=== PATIENT | male | born 1940 | race Caucasian/White ===

== ENCOUNTER → 2022-01-30 | Outpatient (CLI) | payer MEDICARE, BC | LOC: KOH-I 10:10 | DX: M54.50 Low back pain, unspecified (principal); M47.816 Spondylosis without myelopathy or radiculopathy, lumbar region; I71.4 Abdominal aortic aneurysm, without rupture | CPT/HCPCS: 72100 ==

== ENCOUNTER → 2022-02-20 | Outpatient (CLI) | payer MEDICARE | LOC: EXRD 09:12 | DX: I71.4 Abdominal aortic aneurysm, without rupture (principal) | CPT/HCPCS: 93979 ==

== ENCOUNTER → 2022-06-16 | Outpatient (CLI) | payer MEDICARE ==
[~2022-06-16] MED LIST: ASPIRIN EC81 MG PO; B-121000 MCG PO; BUMETANIDE0.5 MG PO; DOCUSATE SODIU100 MG PO; IRON325 M1 PO; LATANOPROST2.5 ML OU; LIDOCAINE1 EAC1 TP; MACROBID 100 M100 MG PO; MIDODRINE HCL10 MG PO; MIRALAX17 GM PO; NAMENDA 5 MG TAB5 MG PO; PRAVASTATIN SOD40 MG PO; PROTONIX 40 MG40 M1 PO; PROTONIX DRIP; SENNA8.6 MG PO; SIMBRINZA 1%-0.28 M1 OU; SODIUM BICARBO325 MG PO; SODIUM CHLORIDE3 ML INH; SPIRONOLACTONE25 MG PO; SYNTHROID75 MCG PO
== END ==
LOC: LAB 14:51
DX: N39.0 Urinary tract infection, site not specified (principal)
CPT/HCPCS: 81001; 87077; 87086; 87186

== ENCOUNTER 2022-06-19 15:25 | Inpatient (IN) | payer MEDICARE ==
[~2022-06-19] VITALS: Ht 177.8 cm; Wt 93.0 kg
[2022-06-19 16:27] LABS: RED BLOOD COUNT 1.81 M/UL (4.20-5.50); WHITE BLOOD COUNT 11.7 K/UL (4.5-11.0)
[2022-06-20 01:28] LABS: HEMOGLOBIN 7.6 gm/dl (14.0-17.5)
[2022-06-20 09:34] LABS: HEMOGLOBIN 8.2 gm/dl (14.0-17.5); RED BLOOD COUNT 2.61 M/UL (4.20-5.50); WHITE BLOOD COUNT 10.4 K/UL (4.5-11.0)
[2022-06-20 10:10] LABS: BUN/CREATININE RATIO 31 (0-10)
[2022-06-20] MEDS ORDERED: LIDOCAINE1 EAC1 TP (13:17)
[2022-06-20] MEDS ORDERED: ASPIRIN EC81 MG PO (13:17)
[2022-06-20] MEDS ORDERED: BUMETANIDE0.5 MG PO (13:18)
[2022-06-20] MEDS ORDERED: SIMBRINZA 1%-0.28 M1 OU (13:18)
[2022-06-20] MEDS ORDERED: DOCUSATE SODIU100 MG PO (13:19)
[2022-06-20] MEDS ORDERED: IRON325 M1 PO (13:19)
[2022-06-20] MEDS ORDERED: B-121000 MCG PO (13:19)
[2022-06-20] MEDS ORDERED: LATANOPROST2.5 ML OU (13:19)
[2022-06-20] MEDS ORDERED: PROTONIX 40 MG40 M1 PO (13:20)
[2022-06-20] MEDS ORDERED: NAMENDA 5 MG TAB5 MG PO (13:20)
[2022-06-20] MEDS ORDERED: MIDODRINE HCL10 MG PO (13:20)
[2022-06-20] MEDS ORDERED: SYNTHROID75 MCG PO (13:20)
[2022-06-20] MEDS ORDERED: SENNA8.6 MG PO (13:21)
[2022-06-20] MEDS ORDERED: PRAVASTATIN SOD40 MG PO (13:21)
[2022-06-20] MEDS ORDERED: MIRALAX17 GM PO (13:21)
[2022-06-20] MEDS ORDERED: SPIRONOLACTONE25 MG PO (13:22)
[2022-06-20] MEDS ORDERED: SODIUM BICARBO325 MG PO (13:22)
[2022-06-20] MEDS ORDERED: SODIUM CHLORIDE3 ML INH (13:22)
[2022-06-20] MEDS ORDERED: MACROBID 100 M100 MG PO (13:23)
[2022-06-20 17:03] LABS: HEMOGLOBIN 7.7 gm/dl (14.0-17.5)
[2022-06-21 01:33] LABS: HEMOGLOBIN 7.3 gm/dl (14.0-17.5); RED BLOOD COUNT 2.28 M/UL (4.20-5.50); WHITE BLOOD COUNT 9.9 K/UL (4.5-11.0)
[2022-06-21 04:09] LABS: BUN/CREATININE RATIO 26 (0-10)
[2022-06-21 08:36] LABS: HEMOGLOBIN 7.3 gm/dl (14.0-17.5); RED BLOOD COUNT 2.27 M/UL (4.20-5.50); WHITE BLOOD COUNT 7.9 K/UL (4.5-11.0)
[2022-06-21 08:48] LABS: BUN/CREATININE RATIO 24 (0-10)
[2022-06-21] MEDS ORDERED: PROTONIX DRIP (16:07)
[2022-06-22 00:49] LABS: HEMOGLOBIN 8.3 gm/dl (14.0-17.5)
[2022-06-22 04:56] LABS: WHITE BLOOD COUNT 7.1 K/UL (4.5-11.0)
[2022-06-22 05:00] LABS: RED BLOOD COUNT 2.54 M/UL (4.20-5.50)
[2022-06-22 05:41] LABS: BUN/CREATININE RATIO 22 (0-10)
[2022-06-22 08:52] LABS: HEMOGLOBIN 8.4 gm/dl (14.0-17.5); RED BLOOD COUNT 2.71 M/UL (4.20-5.50); WHITE BLOOD COUNT 7.1 K/UL (4.5-11.0)
== END 2022-06-22 15:36 | DRG 378 ==
LOC: ER1 15:25 → CDU 06-20 00:33 → PROG CARE 06-20 00:33 → M/S 06-20 16:25 → PROG CARE 06-21 18:04
PROVIDERS: Family Medicine; Internal Medicine; Nurse Practitioner; ADMIT Internal Medicine
PROC: 30233N1 Transfusion of Nonautologous Red Blood Cells into Peripheral Vein, Percutaneous Approach (ICD-10-PCS; principal; 2022-06-19)
PROC: 0DJD8ZZ Inspection of Lower Intestinal Tract, Via Natural or Artificial Opening Endoscopic (ICD-10-PCS; 2022-06-21)
DX: K92.2 Gastrointestinal hemorrhage, unspecified (principal); D62 Acute posthemorrhagic anemia; E44.0 Moderate protein-calorie malnutrition; Z66 Do not resuscitate; I48.20 Chronic atrial fibrillation, unspecified; N17.9 Acute kidney failure, unspecified; I50.42 Chronic combined systolic (congestive) and diastolic (congestive) heart failure; I13.0 Hypertensive heart and chronic kidney disease with heart failure and stage 1 through stage 4 chronic kidney disease, or unspecified chronic kidney disease; N40.0 Benign prostatic hyperplasia without lower urinary tract symptoms; E03.9 Hypothyroidism, unspecified; N18.30 Chronic kidney disease, stage 3 unspecified; I71.4 Abdominal aortic aneurysm, without rupture; K21.9 Gastro-esophageal reflux disease without esophagitis; F03.90 Unspecified dementia, unspecified severity, without behavioral disturbance, psychotic disturbance, mood disturbance, and anxiety; I49.5 Sick sinus syndrome; D63.1 Anemia in chronic kidney disease; D50.9 Iron deficiency anemia, unspecified; I25.10 Atherosclerotic heart disease of native coronary artery without angina pectoris; I25.5 Ischemic cardiomyopathy; Z79.01 Long term (current) use of anticoagulants; Z95.0 Presence of cardiac pacemaker; Z68.29 Body mass index [BMI] 29.0-29.9, adult; Z98.42 Cataract extraction status, left eye; Z98.41 Cataract extraction status, right eye; Z90.49 Acquired absence of other specified parts of digestive tract; Z98.890 Other specified postprocedural states; Z82.49 Family history of ischemic heart disease and other diseases of the circulatory system; Z82.0 Family history of epilepsy and other diseases of the nervous system
CPT/HCPCS: 36415; 36600; 71045; 80048; 80053; 81001; 82550; 82553; 82607; 82746; 82803; 83540; 83550; 83735; 84100; 84439; 84443; 84484; 85014; 85018; 85025; 85027; 85610; 86140; 86850; 86900; 86901; 86920; 87040; 93005; 96374; 99285; C9113; J1756; J2001; J2704; P9016